=== PATIENT | male | born 1965 | race Caucasian/White ===

== ENCOUNTER 2022-04-25 09:22 | Outpatient (CLI) | payer OTHER, SELFPAY ==
[2022-04-25 15:26] LABS: Albumin* 4.9 g/dL (3.3-5.0)
[2022-04-25 15:27] LABS: Chloride* 102 mmol/L (96-114); Potassium* 5.2 mmol/L (3.6-5.1); Sodium* 140 mmol/L (135-149)
[2022-04-25 15:29] LABS: Carbon Dioxide* 30 mmol/L (20-32); Cholesterol* 274 mg/dL (90-199); Creatinine* 0.9 mg/dL (0.5-1.5); Estimated Glomerular Filt Rate 101 ml/min
[2022-04-25 15:30] LABS: Alanine Aminotransferase* 29 U/L (4-50); Alkaline Phosphatase* 79 U/L (40-150); Aspartate Amino Transferase* 38 U/L (12-35); Bilirubin Total* 0.9 mg/dL (0.1-1.5); Blood Urea Nitrogen* 15 mg/dL (7-30); Calcium* 9.4 mg/dL (8.4-10.6); Glucose* 95 mg/dL (60-115); HDL Cholesterol* 48 mg/dL (>=40); LDL Cholesterol Calculated 197 mg/dL (<100); Total Protein* 7.6 g/dL (6.0-8.3); Triglycerides* 145 mg/dL (40-149)
[2022-04-25 16:00] LABS: PSA Screen* 0.22 ng/mL (0.10-4.00)
== END 2022-04-25 09:23 | disposition home or self-care (01) ==
PROVIDERS: PCP Internal Medicine; Visit Provider Internal Medicine
DX: Z00.00 Encounter for general adult medical examination without abnormal findings (principal); Z13.6 Encounter for screening for cardiovascular disorders; Z12.5 Encounter for screening for malignant neoplasm of prostate
CPT/HCPCS: 80053; 80061; 84153

== ENCOUNTER 2022-05-30 10:50 | Outpatient (CLI) | payer OTHER, SELFPAY ==
[2022-05-30 11:17] LABS: Appearance Urine Clear (Clear); Bilirubin Urine Negative (Negative); Blood Urine Trace-intact (Negative); Color Urine Yellow (Yellow); Glucose Urine Negative (Negative); Ketones Urine Negative (Negative); Leukocyte Esterase Urine Negative (Negative); Nitrite Urine Negative (Negative); Protein Urine Negative (Negative); Urobilinogen Urine 0.2 (0.2-1.0); pH Urine 6.5 (5.0-8.5)
[2022-05-30 15:03] LABS: Basophils Absolute Auto 0.03 K/uL (0.00-0.30); Basophils Percent Auto 0.4 % (0.0-3.0); Eosinophils Absolute Auto 0.13 K/uL (0.00-0.50); Eosinophils Percent Auto 1.9 % (0.0-7.0); Hematocrit 43.3 % (37.0-53.0); Immature Granulocytes Abs Auto 0.01 K/uL (0.00-0.30); Immature Granulocytes Pct Auto 0.1 %; Lymphocytes Percent Auto 19.6 % (20-44); Mean Corpuscular HGB Conc 35 gm/dL (32-36); Mean Corpuscular Hemoglobin 32 pg (26-34); Mean Corpuscular Volume 92 fL (80-100); Monocytes Percent Auto 6.5 % (0.0-11.0); Neutrophils Absolute Auto 4.79 K/uL (1.7-7.0); Neutrophils Percent Auto 71.5 % (42.0-72.0); Platelet Count* 258 K/uL (140-440); RDW Coefficient of Variation % 12.2 % (11.5-15.5); White Blood Count* 6.72 K/uL (4.50-11.00)
[2022-05-30 15:08] LABS: Slide Review Reflex No
[2022-05-30 15:22] LABS: RBC Urine 0-2 (0-2); WBC Urine 0-2 (0-5)
[2022-05-30 15:23] LABS: Bacteria Urine Few
[2022-05-30 16:15] LABS: Albumin* 4.7 g/dL (3.3-5.0); Chloride* 105 mmol/L (96-114)
[2022-05-30 16:16] LABS: Potassium* 4.5 mmol/L (3.6-5.1); Sodium* 142 mmol/L (135-149)
[2022-05-30 16:18] LABS: Amylase* 69 U/L (18-89); Carbon Dioxide* 27 mmol/L (20-32); Creatinine* 0.9 mg/dL (0.5-1.5); Estimated Glomerular Filt Rate 101 ml/min; Total Protein* 7.2 g/dL (6.0-8.3)
[2022-05-30 16:19] LABS: Alanine Aminotransferase* 32 U/L (4-50); Alkaline Phosphatase* 80 U/L (40-150); Aspartate Amino Transferase* 36 U/L (12-35); Bilirubin Total* 0.9 mg/dL (0.1-1.5); Blood Urea Nitrogen* 15 mg/dL (7-30); Calcium* 9.2 mg/dL (8.4-10.6); Glucose* 90 mg/dL (60-115); Lipase* 124 U/L (23-300)
[2022-06-05 00:13] LABS: Immunoglobulin G 863 mg/dL (768-1632)
[2022-06-05 17:32] LABS: Tissue Transglutaminase Ab IgG 2 U/mL (0-5)
== END 2022-05-30 10:51 | disposition home or self-care (01) ==
PROVIDERS: PCP Internal Medicine; Visit Provider Nurse Practitioner Family
DX: R10.9 Unspecified abdominal pain (principal); R11.2 Nausea with vomiting, unspecified; R19.7 Diarrhea, unspecified
CPT/HCPCS: 80053; 81003; 81015; 82150; 82787; 83690; 85025; 86256; 86364; 87086

== ENCOUNTER 2022-05-30 13:00 | Outpatient (CLI) | payer OTHER, SELFPAY ==
--- OUTSIDE RECORDS SUMMARY | 2022-05-30 13:32 | XMS_ITS | Clinical Summary ---
:1965 Author Organization [facility] [place] [address] Care Team Providers Name Role Phone Bandar Ortiz MD Primary Care Provider Allergies Active Allergy Reactions Severity Noted Date Comments Wshyfqo-Lrn-Hxs Reductase Inhibitors Myalgia 10/28 Medications Medication Sig Dispensed Refills Start Date End Date Status oxyCODONE-acetamino Take 1-2 tablets by 30 tablet 0 11/10/2015 Active phen, 5-325 mg, mouth every 4 hours (PERCOCET) 5-325 mg if needed for Pain. per Max acetaminophen tabletIndications: dose: 4000mg in 24 Bilateral kidney hrs. stones Active Problems Problem Noted Date Bilateral kidney stones 10/16/2015 Social History Tobacco Use Types Packs/Day Years Used Date Former Smoker Quit: 10/29/18 96 Smokeless Tobacco: Never Used Tobacco Cessation: Counseling Given: Yes Alcohol Use Standard Drinks/Week Comments Yes 0 (1 standard drink = 0.6 oz pure alcoho l) socially Alcohol Habits Answer Date Recorded How often do you have a drink containing alcohol? Not asked How many drinks containing alcohol do you have on a typical Not asked day when you are drinking? How often do you have six or more drinks on one occasion? No t asked Comment: socially 11/09/2015 Sex Assigned at Date Recorded Not on file Obstetrics History Last Filed Vital Signs Vital Sign Reading Time Taken Comments Blood Pressure 136/76 11/10/2015 5:00 PM CDT Pulse 66 11/10/2015 5:00 PM CDT Temperature 36.1 ??C (97 ??F) 11/10/2015 5:00 PM CDT Respiratory Rate 16 11/10/2015 5:00 PM CDT Oxygen Saturation 96% 11/10/2015 5:00 PM CDT Inhaled Oxygen Concentration - - Weight 77.1 kg (170 lb) 11/09/2015 11:09 AM CDT Height 172.7 cm (5' 7.99) 11/09/2015 11:09 AM CDT Body Mass Index 25.85 11/09/2015 11:09 AM CDT Plan of Treatment Health Maintenance Due Date Last Done Comments COVID-19 vaccine series (#1) 1967 Tdap 1978 Depression screening for age 12+ 1979 HIV for age 15-65 1982 Hepatitis C screening for age 18-79 1985 Tetanus booster 1987 Colonoscopy through age 75 2012 Lipids for age 45-75 2012 BMI (ht and wt on same day) for age 18+ 10/15/2016 10/16/19 16 Zoster (shingles) series for age 50+ (1 of 2) 2017 Influenza for age 50-64 02/28/2022 Results Not on filefrom Last 3 Months Insurance Payer Benefit Plan / Subscriber ID Effective Dates Phone Addre ss Type Group PREFERRED ONE PREFERRED ONE [id number] 2013-Present [address] [place] [address] Advance Directives Latest Code Status on File Code Status Date Activated Date Inactivated Comments Full Code 11/10/2015 9:04 AM 11/10/2015 7:22 PM Care Teams Bottling Equipment Sales Representative Relationship Specialty Start Date End Date Bandar Ortiz MD PCP - General 10/16/151999 [place] [address]
--- NOTE | 2022-05-30 14:00 | CRLHL7_ITS ---
For Patients: As a result of the Century Cures Act, medical imaging exams and procedure reports are released immediately into your electronic medical record. You may view this report before your referring provider. If you have questions, please contact your health care provider. INDICATION: Acute left-sided upper abdominal pain.. TECHNIQUE: CT abdomen and pelvis acquired with 98 cc Isovue 370 IV contrast. COMPARISON: None. FINDINGS: Lower chest: Unremarkable. Liver: Unremarkable. Normal in size and attenuation. No suspicious masses. Gallbladder and bile ducts: Unremarkable. No stones or inflammation. No biliary dilatation. Pancreas: Unremarkable. No mass or inflammation. Spleen: Unremarkable. Normal in size. No masses. Adrenal glands: Unremarkable. No nodules. Kidneys: 3 millimeter nonobstructing stone in the superior pole of the right kidney (2/43). GI tract: Unremarkable. Normal in caliber. No sign of mass or inflammation. Normal appendix. Vasculature: Abdominal aorta is normal in caliber. Mesenteric arteries are patent. Lymph nodes: No lymphadenopathy. Peritoneum/Abdominal Wall: Unremarkable. No sign of mass or infiltration. No free air or significant free fluid. Pelvis: Unremarkable. Bones: Unremarkable for age. IMPRESSION: No acute intra-abdominal process identified. 3 millimeter nonobstructing stone in the superior pole of the right kidney. Please note that all CT scans at this facility use dose modulation, iterative reconstruction, and/or weight-based dosing when appropriate to reduce radiation dose to as low as reasonably achievable. Dictated by Kylie Gonzalez MD @ 05/30/2022 3:11:56 PM (Electronically Signed)
== END 2022-05-30 13:01 | disposition home or self-care (01) ==
LOC: CT 13:01
PROVIDERS: PCP Internal Medicine; Visit Provider Nurse Practitioner Family
DX: R10.9 Unspecified abdominal pain (principal); N20.0 Calculus of kidney
CPT/HCPCS: 74177; Q9967

== ENCOUNTER 2022-10-21 07:40 | Outpatient (CLI) | payer OTHER, SELFPAY | END 2022-10-21 07:41 | disposition home or self-care (01) | LOC: NFLDREF 22:03 | PROVIDERS: PCP Nurse Practitioner Family; Referring Provider Nurse Practitioner Family; Visit Provider Nurse Practitioner Family | DX: E78.5 Hyperlipidemia, unspecified (principal); Z51.81 Encounter for therapeutic drug level monitoring | CPT/HCPCS: 80061; 80076 ==

== ENCOUNTER 2023-03-06 09:11 | Outpatient (CLI) | payer OTHER, SELFPAY | END 2023-03-06 09:12 | disposition home or self-care (01) | LOC: KYNREF 09:13 | PROVIDERS: PCP Nurse Practitioner Family; Visit Provider Nurse Practitioner Family | DX: K62.5 Hemorrhage of anus and rectum (principal) | CPT/HCPCS: 85025 ==

== ENCOUNTER 2023-03-17 11:35 | Outpatient (CLI) | payer OTHER, SELFPAY ==
--- NOTE | 2023-03-17 12:11 | W.ANESCHARGE ---
Anesthesia Charges Start Date/Time Anesthesia Start Date: 03/17/23 Anesthesia Start Time: 12:14 Stop Date/Time Anesthesia Stop Date: 03/17/23 Anesthesia Stop Time: 12:53
--- NOTE | 2023-03-17 12:57 | W.ANESCHARGE ---
Anesthesia Charges Start Date/Time Anesthesia Start Date: 03/17/23 Anesthesia Start Time: 12:14 Stop Date/Time Anesthesia Stop Date: 03/17/23 Anesthesia Stop Time: 12:53
== END 2023-03-17 11:36 | disposition home or self-care (01) ==
LOC: OP CLINIC 11:35
PROVIDERS: PCP Nurse Practitioner Family; Visit Provider Surgery
DX: Z12.11 Encounter for screening for malignant neoplasm of colon (principal); K62.1 Rectal polyp; K57.30 Diverticulosis of large intestine without perforation or abscess without bleeding; Z83.71 Family history of colonic polyps
CPT/HCPCS: 45385; 811; 88305; J2704

== ENCOUNTER 2023-05-19 15:07 | Outpatient (CLI) | payer OTHER, SELFPAY | END 2023-05-19 15:08 | disposition home or self-care (01) | PROVIDERS: PCP Nurse Practitioner Family; Visit Provider Nurse Practitioner Family | DX: R07.9 Chest pain, unspecified (principal) | CPT/HCPCS: 80048; 80061; 84484; 85025 ==

== ENCOUNTER 2023-06-03 13:34 | Outpatient (CLI) | payer OTHER, SELFPAY ==
[2023-06-03 15:30] VITALS: BP 149/83; PULSE 116; RESP 18
--- NOTE | 2023-06-03 16:12 | W.PM.STED ---
Stress Test Note Date Date of test: 06/03/23 Providers Primary care provider: Raeann Hilario Stress test physician: Praveen Fu Stress Test Note Stress test ordered: Stress Echo Indication for test: Chest pain, family history Results discussion: Patient is a very nice 58-year-old gentleman who presents for the above test after discussion the risks benefits side effects he would like to proceed pretest EKG shows normal sinus rhythm with a ventricular rate of 82 and a blood pressure 136/84. Standard Porfirio protocol is done over 10 minute 30 seconds. Inch evening metabolic equivalent of 12.1 Mets with a maximum heart rate of 166 which is 119% of the maximum. No evidence of significant ST wave changes, suggestive of ischemia. There is no chest pain no shortness of breath, test is terminated because of fulfillment of protocol Impression: Negative electrographic portion of stress echo Follow up suggested: Await echo images clinical correlation with these will be needed. Patient left this testing facility in good condition.
== END 2023-06-03 13:35 | disposition home or self-care (01) ==
LOC: STRESS 13:34
PROVIDERS: PCP Nurse Practitioner Family; Visit Provider Family Medicine
DX: R07.9 Chest pain, unspecified (principal); Z82.49 Family history of ischemic heart disease and other diseases of the circulatory system
CPT/HCPCS: 93016; 93325; 93351

== ENCOUNTER 2024-02-03 16:58 | Outpatient (REF) | payer OTHER, SELFPAY ==
--- OUTSIDE RECORDS SUMMARY | 2024-02-03 17:01 | XMS_ITS | Clinical Summary ---
Author Organization [facility] Address [place], [place] [address] Care Team Providers Care Brim Ironer Hand Name Role Phone Bandar Ortiz MD Primary Care Provider Allergies Active Allergy Reactions Criticality Noted Date Comments Kfhgtpn-Rng-Mxz Reductase Inhibitors Myalgia 11/09/2015 Medications Medication Sig Dispensed Refills Start Date End Date Status oxyCODONE-acetamin ophen, 5-325 mg, (PERCOCET) 5-325 mg per tabletIndications: Bilateral kidney stones Take 1-2 tablets by mouth every 4 hours if needed for Pain. Max acetaminophen dose: 4000mg in 24 hrs. 30 tablet 11/10/2015 Active Active Problems Problem Noted Date Diagnosed Date Bilateral kidney stones 10/16/2015 Social History Tobacco Use Types Packs/Day Years Used Date Smoking Tobacco: Former Cigarettes Q uit: 10/30/1995 Smokeless Tobacco: Never Tobacco Cessation:Counseling Given: Yes Alcohol Use Standard Drinks/Week Comments Yes 0 (1 standard drink = 0.6 oz pur e alcohol) socially Sex and Gender Information Value Date Recorded Sex Assigned at Not on file Gender Identity Not on file Sexual Orientation Not on file Obstetrics History Last Filed [...] 172.7 cm (5' 7.99) 11/09/2015 11:09 AM C DT Body Mass Index 25.85 11/09/2015 11:09 AM CDT Plan of Treatment Health Maintenance Due Date Last Done Comments Tdap 1978 Depression screening for age 12+ 1979 HIV for age 15-65 1982 Hepatitis C screening for ag e 18-79 1985 Tetanus booster 1987 Colonoscopy through age 75 2012 Lipids for age 45-75 2012 BMI (ht and wt on same day) for age 18+ 10/15/2016 10/16/2015 Zoster (shingles) series for age 50+ (1 of 2) 2017 COVID-19 vaccine series ( - 2022- season) 2023 Influenza for age 50-64 02/29/2024 Pneumococcal series for age 6-64 Aged Out No longer eligible based on patient's age to complete this topic Advance Directives * Full Code (Latest Code Status on File) Date Activated Date Inactivated Comments 11/10/2015 9:04 AM 11/10/2015 7:22 PM Care Teams Brim Ironer Hand Relationship Specialty Start Date End Date Bandar Ortiz MD [address] [place] [address] PCP - General 10/16/15
[2024-02-03 17:58] LABS: Cholesterol* 192 mg/dL (90-199)
[2024-02-03 17:59] LABS: HDL Cholesterol* 34 mg/dL (>=40); LDL Cholesterol Calculated 101 mg/dL (<100); Triglycerides* 283 mg/dL (40-149); Uric Acid* 8.3 mg/dL (2.2-8.4)
== END 2024-02-03 16:59 | disposition home or self-care (01) ==
LOC: NPINS 16:58
PROVIDERS: PCP Nurse Practitioner Family; Visit Provider Dermatology
DX: L40.0 Psoriasis vulgaris (principal); Z79.899 Other long term (current) drug therapy
CPT/HCPCS: 80061; 83735; 84550

== ENCOUNTER 2024-11-04 14:11 | Outpatient (CLI) | payer OTHER, SELFPAY | END 2024-11-04 14:12 | disposition home or self-care (01) | PROVIDERS: PCP Nurse Practitioner Family; Visit Provider Nurse Practitioner Family | DX: M25.59 Pain in other specified joint (principal) | CPT/HCPCS: 84550; 85651; 86038; 86140; 86200; 86431 ==

== ENCOUNTER 2025-01-10 15:26 | Outpatient (CLI) | payer OTHER, SELFPAY | END 2025-01-10 15:27 | disposition home or self-care (01) | LOC: NFLDREF 01-12 14:37 | PROVIDERS: PCP Nurse Practitioner Family; Referring Provider Nurse Practitioner Family; Visit Provider Nurse Practitioner Family | DX: M10.9 Gout, unspecified (principal) | CPT/HCPCS: 84550 ==

== ENCOUNTER 2025-04-01 11:33 | Outpatient (CLI) | payer OTHER, SELFPAY | END 2025-04-01 11:34 | disposition home or self-care (01) | PROVIDERS: PCP Nurse Practitioner Family; Visit Provider Nurse Practitioner Family | DX: R10.9 Unspecified abdominal pain (principal) | CPT/HCPCS: 80053; 82150; 82784; 83690; 85025; 86231; 86258; 86364 ==

== ENCOUNTER 2025-04-04 06:00 | Outpatient (CLI) | payer OTHER, SELFPAY | END 2025-04-04 06:01 | disposition home or self-care (01) | LOC: NFLDREF 04-05 12:39 | PROVIDERS: PCP Nurse Practitioner Family; Referring Provider Nurse Practitioner Family; Visit Provider Nurse Practitioner Family | DX: R10.9 Unspecified abdominal pain (principal) | CPT/HCPCS: 87338 ==

== ENCOUNTER 2025-04-25 10:18 | Outpatient (CLI) | payer OTHER, SELFPAY ==
--- NOTE | 2025-04-25 11:28 | P.ANES_ITS ---
Anesthesia Charges Start Date/Time Anesthesia Start Date: 04/25/25 Anesthesia Start Time: 10:45 Stop Date/Time Anesthesia Stop Date: 04/25/25 Anesthesia Stop Time: 11:24 Coding CPT Codes CPT Codes: ANES UPR LWR GI NDSC PX - 69052 ([id number]) P2 - PATIENT W/MILD SYST DISEASE, QK - METAL PATTERNMAKER 2-4 CNCRNT ANES PROC, QX - SUPERVISORY AIDE SVC W/ MD MED DIRECTION
--- NOTE | 2025-04-25 11:28 | W.ANESCHARGE ---
Anesthesia Charges Start Date/Time Anesthesia Start Date: 04/25/25 Anesthesia Start Time: 10:45 Stop Date/Time Anesthesia Stop Date: 04/25/25 Anesthesia Stop Time: 11:24 Coding CPT Codes CPT Codes: ANES UPR LWR GI NDSC PX - 23324 ([id number]) P2 - PATIENT W/MILD SYST DISEASE, QK - AGENCY SALES REPRESENTATIVE 2-4 CNCRNT ANES PROC, QX - AREA DIRECTOR OF HOME HEALTH SALES SVC W/ MD MED DIRECTION
--- NOTE | 2025-04-25 12:42 | P.ANES_ITS ---
Anesthesia Charges Start Date/Time Anesthesia Start Date: 04/25/25 Anesthesia Start Time: 10:45 Stop Date/Time Anesthesia Stop Date: 04/25/25 Anesthesia Stop Time: 11:24 Coding CPT Codes CPT Codes: ANES UPR LWR GI NDSC PX - 63055 ([id number]) QK - MARKLOGIC DEVELOPER 2-4 CNCRNT ANES PROC, QX - COMMUNITY CHEST OFFICER SVC W/ MD MED DIRECTION, P2 - PATIENT W/MILD SYST DISEASE
--- NOTE | 2025-04-25 12:42 | W.ANESCHARGE ---
Anesthesia Charges Start Date/Time Anesthesia Start Date: 04/25/25 Anesthesia Start Time: 10:45 Stop Date/Time Anesthesia Stop Date: 04/25/25 Anesthesia Stop Time: 11:24 Coding CPT Codes CPT Codes: ANES UPR LWR GI NDSC PX - 64387 ([id number]) QK - CLOTH EDGE SINGER 2-4 CNCRNT ANES PROC, QX - RN HEMODIALYSIS CHARGE SVC W/ MD MED DIRECTION, P2 - PATIENT W/MILD SYST DISEASE
== END 2025-04-25 10:19 | disposition home or self-care (01) ==
LOC: OP CLINIC 10:18
PROVIDERS: PCP Nurse Practitioner Family; Visit Provider Internal Medicine
DX: Z12.11 Encounter for screening for malignant neoplasm of colon (principal); R10.13 Epigastric pain; Z86.0100 Personal history of colon polyps, unspecified; K57.30 Diverticulosis of large intestine without perforation or abscess without bleeding; D12.2 Benign neoplasm of ascending colon; D12.5 Benign neoplasm of sigmoid colon
CPT/HCPCS: 00813; 43239; 45380; 88305; J2704; J3490

== ENCOUNTER 2025-05-31 14:08 | Outpatient (CLI) | payer OTHER, SELFPAY ==
[2025-05-31 14:53] LABS: PCR FLU A Negative PCR FLU A (Negative); PCR FLU B Negative PCR FLU B (Negative); SARS PCR* Negative SARS-CoV-2 (Negative)
== END 2025-05-31 14:09 | disposition home or self-care (01) ==
LOC: NFLDUCREF 14:08
PROVIDERS: PCP Nurse Practitioner Family; Visit Provider Physician Assistant Surgical
DX: R52 Pain, unspecified (principal)
CPT/HCPCS: 87636